=== PATIENT | male | born 1970 | race Caucasian/White ===

== ENCOUNTER 2016-02-26 05:57 | Outpatient (CLI) | payer OTHER ==
[~2016-02-26] VITALS: Ht 175.3 cm; Wt 90.7 kg
[~2016-02-26 05:57] MED LIST: LANS15CA PO; OMEP20TA33 PO
[2016-03-01] MEDS ORDERED: PRAV10TA PO (13:16)
== END 2016-02-26 13:51 ==
LOC: PREOP 05:57
PROVIDERS: ATTEND Surgery
DX: Z01.818 Encounter for other preprocedural examination (principal); R19.7 Diarrhea, unspecified; Z80.0 Family history of malignant neoplasm of digestive organs

== ENCOUNTER → 2016-03-01 | Day surgery (SDC) | payer OTHER ==
[~2016-03-01] VITALS: Ht 175.3 cm; Wt 90.7 kg
[~2016-03-01] MED LIST changes: +BUP/EPI 0.25% 1:200,000 (MARCAINE) 30 ML VIAL ONE; +FLUMAZENIL (ROMAZICON) 0.1 MG/ML 5 ML VIAL INJ PRN; +HYDR-3812 PO; +MIDAZOLAM 2 MG/2 ML (VERSED) VIAL ONE; +NALOXONE 0.4 MG/ML 1 ML (NARCAN) VIAL IVP PRN; +NS IV 500 ML 500 ML IV PRN; +PRAV10TA PO; +fentaNYL INJECTION 100 MCG/2 ML AMP ONE
--- NOTE | 2016-03-01 12:58 | Pre-Op Note & Conscious Sedat ---
Pre-Operative Progress Note H&P Reviewed The H&P was reviewed, patient examined and no changes noted. Date H&P Reviewed: Mar 01, 2016 Time H&P Reviewed: 12:58 Pre-Op Diagnosis: diarrhea. Family history of colon cancer Conscious Sedation Pre-Proced ASA Class: 2 Airway Mallampati Classification: ([place] appropriate class) I. II. III, IV Lungs Heart ASA score ASA 1: a normal healthy patient ASA 2: a patient with a mild systemic disease (mid diabetes, controlled hypertension, obesity ASA 3: a patient with a severe systemic disease that limits activity (angina , COPD, prior Myocardial infarction) ASA 4: a patient with an incapacitating disease that is a constant threat to life (CHF, renal failure) ASA 5: a moribund patient not expected to survive 24 hrs. (ruptured aneurysm) ASA 6: a declared brain patient whose organs are being harvested. For emergent operations, add the letter E after the classification Grade 1 Sedation Plan: Discussed options with patient/fam Note The patient is an appropriate candidate to undergo the planned procedure, sedation, and anesthesia. The patient immediately re-assessed prior to indication. RUBEN GUIDRY MD Mar 01, 2016 12:58 pm
[2016-03-01 13:00] VITALS: BP 138/105
[2016-03-01] MEDS: fentaNYL INJECTION 100 MCG/2 ML AMP IVP PRN ×2 (13:11→13:13)
[2016-03-01] MEDS: MIDAZOLAM 2 MG/2 ML (VERSED) VIAL IVP PRN ×3 (13:12→13:18)
--- NOTE | 2016-03-01 13:31 | Progress Note-Post Operative ---
Post-Operative Progess Note Pre-Operative Diagnosis diarrhea. Family history of colon cancer Post-Operative Diagnosis normal colonoscopy Post-Op Procedure Note Date of Procedure: Mar 01, 2016 Name of Procedure: colonoscopy to cecum Anesthesia Type sedation RUBEN GUIDRY MD Mar 01, 2016 1:31 pm
--- NOTE | 2016-03-01 13:32 | Discharge Inst-Simple/Standard ---
Discharge Inst-Standard Discharge Medications New, Converted or Re-Newed RX: Other Patient Instructions/Follow Up Plan of Care/Instructions/FU: to return for cholecystectomy as scheduled before. May use [id number] antidiarrheals Activity as Tolerated: Yes Discharge Diet: No Restrictions RUBEN GUIDRY MD Mar 01, 2016 1:32 pm
--- NOTE | 2016-03-01 13:36 | PROCEDURE REPORT ---
PROCEDURE PHYSICIAN: RUBEN GUIDRY DATE OF PROCEDURE: 03/01/2016 PROCEDURE: Colonoscopy. SURGEON: Maxwell INDICATION FOR THE PROCEDURE: This gentleman is due to undergo cholecystectomy to address chronic, acalculous cholecystitis. Due to new onset of diarrhea and a family history of colon cancer, it was felt reasonable to perform colonoscopy prior to cholecystectomy. Informed consent was obtained after reviewing the procedure in detail. DESCRIPTION OF PROCEDURE: He was placed in left lateral decubitus position and his vital signs were monitored. Conscious sedation was achieved using Versed and fentanyl. Digital rectal examination was unremarkable. The colonoscope was then introduced into the rectum and advanced all the way up to the cecum. The quality of bowel preparation was excellent. The scope was then withdrawn slowly and the mucosa examined in a systematic fashion. There was no abnormality. He tolerated the procedure well and was taken back to the nursing area in a stable condition. IMPRESSION: 1. New onset of diarrhea. 2. Positive family history of colon cancer. 3. Normal colonoscopy. Recommend screening exam in 5 years. 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
[2016-03-01 13:55] VITALS: BP 123/95
[2016-03-01 14:25] VITALS: BP 123/93
== END | disposition home or self-care (01) ==
LOC: SDC 12:43
PROVIDERS: ATTEND Surgery
DX: R19.7 Diarrhea, unspecified (principal); Z80.0 Family history of malignant neoplasm of digestive organs; K81.1 Chronic cholecystitis

== ENCOUNTER 2016-03-18 12:39 | Outpatient (CLI) | payer OTHER ==
[~2016-03-18] VITALS: Ht 175.3 cm; Wt 93.0 kg
[~2016-03-18 12:39] MED LIST changes: -BUP/EPI 0.25% 1:200,000 (MARCAINE) 30 ML VIAL ONE; -FLUMAZENIL (ROMAZICON) 0.1 MG/ML 5 ML VIAL INJ PRN; -HYDR-3812 PO; -MIDAZOLAM 2 MG/2 ML (VERSED) VIAL ONE; -NALOXONE 0.4 MG/ML 1 ML (NARCAN) VIAL IVP PRN; -NS IV 500 ML 500 ML IV PRN; -fentaNYL INJECTION 100 MCG/2 ML AMP ONE
[2016-03-19] MEDS ORDERED: HYDR-3812 PO (08:52)
== END 2016-03-18 12:43 ==
LOC: PREOP 12:39
PROVIDERS: ATTEND Surgery
DX: Z01.818 Encounter for other preprocedural examination (principal); K82.8 Other specified diseases of gallbladder

== ENCOUNTER 2016-03-19 05:51 | Day surgery (SDC) | payer OTHER ==
[~2016-03-19] VITALS: Ht 175.3 cm; Wt 93.0 kg
[2016-03-19] MEDS ORDERED: FAMOTIDINE 20MG/2ML IV (PEPCID) IV ONE (06:15)
[2016-03-19 06:20] VITALS: BP 139/102
[2016-03-19] MEDS: LACTATED RINGERS 1,000 ML IV PRN ×2 (06:28→08:45)
[2016-03-19] MEDS ORDERED: ceFAZolin 2 GM/50 ML NS 50 ML IV ONE (06:31)
[2016-03-19] MEDS ORDERED: metroNIDAZOLE 500MG/100ML IVPB 100 ML ONE (06:31)
[2016-03-19 06:38] LABS: BASOPHILS # (AUTO) 0.1 10^3/uL (0.0-0.1); BASOPHILS % (AUTO) 1 % (0-10); EOSINOPHILS # (AUTO) 0.2 10^3/uL (0.0-0.3); EOSINOPHILS % (AUTO) 3 % (0-10); LYMPHOCYTES # (AUTO) 1.9 X 10^3 (1.0-4.0); LYMPHOCYTES % (AUTO) 28 % (12-44); MEAN CORPUSCULAR HEMOGLOBIN 30 PG (25-34); MEAN CORPUSCULAR HGB CONC 35 G/DL (32-36); MEAN CORPUSCULAR VOLUME 85 FL (80-99); MEAN PLATELET VOLUME 10.9 FL (7.4-10.4); MONOCYTES # (AUTO) 0.7 X 10^3 (0.0-1.0); MONOCYTES % (AUTO) 10 % (0-12); NEUTROPHILS # (AUTO) 3.9 X 10^3 (1.8-7.8); NEUTROPHILS % (AUTO) 59 % (42-75); PLATELET COUNT 177 10^3/uL (130-400); RED BLOOD COUNT 5.74 10^6/uL (4.35-5.85); RED CELL DISTRIBUTION WIDTH 14.2 % (10.0-14.5); WHITE BLOOD COUNT 6.7 10^3/uL (4.3-11.0)
[2016-03-19] MEDS ORDERED: metroNIDAZOLE 500 MG/100 ML IVPB (PRE-MIX) IV ONE (06:45)
[2016-03-19] MEDS ORDERED: ceFAZolin 2 GM/NS 50 ML IV ONE (06:45)
[2016-03-19] MEDS ORDERED: CATHETER FLUSH 10 ML SYR IV PRN (06:45)
[2016-03-19 07:09] LABS: ALANINE AMINOTRANSFERASE 45 U/L (0-55); ANION GAP 10 MMOL/L (5-14); ASPARTATE AMINO TRANSFERASE 21 U/L (5-34); BILIRUBIN,TOTAL 0.4 MG/DL (0.1-1.0); BLOOD UREA NITROGEN 13 MG/DL (7-18); BUN/CREATININE RATIO 11; CALCIUM 8.9 MG/DL (8.5-10.1); CARBON DIOXIDE 24 MMOL/L (21-32); CHLORIDE 105 MMOL/L (98-107); CREATININE SERUM 1.23 MG/DL (0.60-1.30); GFR ESTIMATED > 60; GLUCOSE 95 MG/DL (70-105); POTASSIUM 4.2 MMOL/L (3.6-5.0); SODIUM 139 MMOL/L (135-145); TOTAL PROTEIN 6.7 G/DL (6.4-8.2)
[2016-03-19] MEDS ORDERED: LACTATED RINGERS 1,000 ML IV ONE ×2 (07:13→08:35)
[2016-03-19] MEDS ORDERED: proPOfol 200 MG/20 ML (DIPRIVAN) VIAL IV ONE (07:13)
[2016-03-19] MEDS ORDERED: ONDANSETRON 4 MG/2 ML (SDV) Z0FRAN ONE (07:13)
[2016-03-19] MEDS ORDERED: ROCURONIUM 50 MG/5 ML (ZEMURON) VIAL IV ONE (07:13)
[2016-03-19] MEDS ORDERED: DEXAMETHASONE PF 10 MG/ML (DECADRON) VIAL ONE (07:13)
[2016-03-19] MEDS ORDERED: LIDOCAINE PF 2% 10 ML (XYLOCAINE) AMP ONE (07:13)
[2016-03-19] MEDS ORDERED: SEVOFLURANE (ULTANE) 15 ML INHAL SOLN ONE ×2 (07:13→09:05)
[2016-03-19] MEDS ORDERED: fentaNYL INJECTION 250 MCG/5 ML AMP ONE (07:14)
[2016-03-19] MEDS ORDERED: MIDAZOLAM 2 MG/2 ML (VERSED) VIAL ONE (07:14)
--- NOTE | 2016-03-19 07:41 | Progress Note-Pre Operative ---
Pre-Operative Progress Note H&P Reviewed The H&P was reviewed, patient examined and no changes noted. Date H&P Reviewed: Mar 19, 2016 Time H&P Reviewed: 07:41 Pre-Operative Diagnosis: Chronic cholecystitis RUBEN GUIDRY MD Mar 19, 2016 7:41 am
[2016-03-19] MEDS ORDERED: hydrALAZINE (APESOLINE) 20 MG/ML VIAL ONE (08:25)
[2016-03-19] MEDS ORDERED: BUP/EPI 0.25% 1:200,000 (MARCAINE) 30 ML VIAL INJ ONE (08:30)
[2016-03-19] MEDS ORDERED: HYDR-3812 PO (08:52)
--- NOTE | 2016-03-19 08:52 | Progress Note-Post Operative ---
Post-Operative Progess Note Pre-Operative Diagnosis Chronic cholecystitis Post-Operative Diagnosis same Post-Op Procedure Note Date of Procedure: Mar 19, 2016 Name of Procedure: robotic-assisted cholecystectomy Anesthesia Type Gen. Estimated blood loss (mL): minimal Specimen(s) collected gallbladder RUBEN GUIDRY MD Mar 19, 2016 8:52 am
--- NOTE | 2016-03-19 08:53 | Discharge Inst-Simple/Standard ---
Discharge Inst-Standard Discharge Medications New, Converted or Re-Newed RX: RX on Chart Patient Instructions/Follow Up Plan of Care/Instructions/FU: dressings off in 48 hours. Incentive spirometry. Follow-up in 3 weeks. Activity as Tolerated: Yes Discharge Diet: No Restrictions RUBEN GUIDRY MD Mar 19, 2016 8:53 am
[2016-03-19] MEDS: morphine INJ 10 MG/ML 1ML (SYR OR VIAL) IVP PRN ×2 (09:13→09:18)
[2016-03-19] MEDS ORDERED: PROMETHAZINE INJ 25 MG/ML (PHENERGAN) AMP IVP PRN (09:15)
[2016-03-19] MEDS ORDERED: ONDANSETRON 4 MG/2 ML (SDV) Z0FRAN IVP PRN (09:15)
[2016-03-19] MEDS ORDERED: MEPERIDINE (DEMEROL) INJ 50 MG/ML IVP PRN (09:15)
[2016-03-19] MEDS ORDERED: KETOROLAC 30 MG/ML VIAL IVP ONE (09:30)
[2016-03-19] MEDS: HYDROmorphone (DILAUDID) 2 MG/ML VIAL IVP PRN ×2 (09:44→09:58)
[2016-03-19] MEDS ORDERED: LABETALOL HCL 20 MG/4 ML VIAL ONE (10:06)
[2016-03-19] MEDS ORDERED: LABETALOL HCL 20 MG/4 ML VIAL IV PRN (10:30)
[2016-03-19 10:40] VITALS: BP 137/101
[2016-03-19 11:10] VITALS: BP 129/85
[2016-03-19 11:40] VITALS: BP 122/94
--- NOTE | 2016-03-22 09:28 | OPERATIVE REPORT ---
PROCEDURE PHYSICIAN: RUBEN GUIDRY DATE OF PROCEDURE: 03/19/2016 PREOPERATIVE DIAGNOSIS: Chronic, acalculous cholecystitis. POSTOPERATIVE DIAGNOSIS: Chronic, acalculous cholecystitis. OPERATION: Robotic assisted cholecystomy. SURGEON: Dr. Guidry. ANESTHESIA: General anesthesia. BLOOD LOSS: Minimal. FLUIDS: 1100 mL of crystalloids. TYPE OF WOUND: Type II (clean - contaminant wound). INDICATION FOR PROCEDURE: This gentleman presented with severe symptoms due to chronic, acalculous cholecystitis. Therefore, he was offered robotic assisted cholecystectomy. Informed consent obtained after reviewing the operative details, complications of wound infection, bile leak and persistence of his symptoms. DESCRIPTION OF PROCEDURE: He was placed supine on the operating table and general anesthesia induced using an endotracheal tube. A gram of Ancef and 500 mg of Flagyl were administered intravenously as prophylaxis against wound infection. Sequential compression devices were placed around his legs, to minimize the risk of venous thrombosis. Abdomen was prepared and draped in the usual sterile manner. A supraumbilical incision was made and the linea alba incised vertically. A [place] cannula was placed and carbon dioxide insufflated to an intra-abdominal pressure of 15 mmHg. Anatomy was visualized using the 3 dimensional, high definition laparoscope associated with da Lavell system. The gallbladder was rather thick due to chronic inflammation. Under direct view, I placed an 8 mm cannula over each side of the abdomen, followed by a 5 mm trocar over the lens left upper quadrant. The patient was then turned in reverse Trendelenburg position with the right side tilted up. The robotic system was then docked in place. The fundus of the gallbladder was retracted cephalad and infundibulum grasped with Cadiere' forceps. Thickened tissue around the neck of the gallbladder was incised using hook cautery, delineating the cystic duct and artery. Both were divided between locking clips. Cholecystectomy was then completed using hook cautery. Subhepatic space was then irrigated with saline and the gallbladder placed in an Endo Catch bag, to be removed via the supraumbilical trocar site. Subsequently, the fascia over the incision was closed using number 1 Vicryl. Skin was closed using 4-0 Vicryl, in a subcuticular fashion. 0.25% Marcaine with epinephrine was infiltrated around the incisions, both preemptively and at the conclusion of the operation. He tolerated the procedure well, was extubated in the operating room and taken to the recovery room in a stable condition. [place], sponges, and instruments were correct at the end of the operation. Job ID: [id number] Dictated Date: 03/19/2016 08:51:14 Trucking Manager Date: 03/22/2016 09:18:32 / mercedes SWAN
== END 2016-03-19 14:10 | disposition home or self-care (01) ==
LOC: SDC 05:51
PROVIDERS: ATTEND Surgery
DX: K81.1 Chronic cholecystitis (principal)
CPT/HCPCS: 36415; 80053; 85025; 87081; 88304; 94664